=== PATIENT | female | born 1950 | race Caucasian/White ===

== ENCOUNTER 2020-06-01 15:04 | Outpatient (REF) | payer OTHER, SELFPAY | END 2020-06-01 15:05 | disposition home or self-care (01) | LOC: HO.HOSX 15:04 | PROVIDERS: Visit Provider Orthopaedic Surgery | DX: Z13.89 Encounter for screening for other disorder (principal) ==

== ENCOUNTER 2021-11-30 12:24 | Outpatient (REF) | payer MEDICARE, SELFPAY ==
[2021-11-30 14:06] LABS: Hemoglobin 14.5 g/dl (12.0-16.0); Mean Corpuscular HGB Conc 32.2 g/dl (31.0-35.0); Mean Corpuscular Hemoglobin 27.9 pg (27.0-33.0); Mean Corpuscular Volume 86.7 fL (80.0-98.0); Mean Platelet Volume 10.8 fL (9.4-12.3); Platelet Count 326 X10*3/uL (160-400); Red Blood Count 5.19 X10*6/uL (4.20-5.50); Red Cell Distribution Width 13.8 % (11.0-16.0); White Blood Count 6.2 X10*3/uL (4.8-10.8)
[2021-11-30 14:37] LABS: Alanine Aminotransferase 15 U/L (0-31); Albumin Level 4.1 g/dL (3.5-5.0); Alkaline Phosphatase 116 U/L (39-117); Anion Gap 16 (12-20); Aspartate Amino Transferase 21 U/L (5-31); Bilirubin Total 0.3 mg/dL (0.0-1.0); Blood Urea Nitrogen 11 mg/dL (9-16); Calcium 10.2 mg/dL (8.4-10.2); Carbon Dioxide 22 mmol/L (22-29); Chloride 109 mmol/L (96-108); Cholesterol 206 mg/dL; Estimated Glomerular Filt Rate 50; Glucose Fasting 128 mg/dL (60-99); HDL Cholesterol 57 mg/dL; LDL Cholesterol Calculated 118 mg/dl; Potassium 3.6 mmol/L (3.3-5.1); Sodium 143 mmol/L (135-145); Total Protein 6.6 g/dL (6.5-8.0); Triglycerides 158 mg/dL
[2021-11-30 14:52] LABS: TSH reflex Free T4 3.36 uIU/mL (0.32-4.0)
== END 2021-11-30 12:25 | disposition home or self-care (01) ==
LOC: HO.WFDLDS 12:24
PROVIDERS: Visit Provider Hospitalist
DX: Z00.00 Encounter for general adult medical examination without abnormal findings (principal)
CPT/HCPCS: 36415; 80053; 80061; 84443; 85027

== ENCOUNTER → 2021-12-21 15:04 | Outpatient (BNVA) | payer MEDICARE, SELFPAY | PROVIDERS: PCP Hospitalist; Visit Provider Psychiatry & Neurology Psychiatry | DX: F34.1 Dysthymic disorder (principal); F41.1 Generalized anxiety disorder | CPT/HCPCS: 90833; 99212 ==

== ENCOUNTER → 2022-02-03 12:43 | Outpatient (BNVA) | payer MEDICARE, SELFPAY | PROVIDERS: PCP Hospitalist; Visit Provider Psychiatry & Neurology Psychiatry | DX: F34.1 Dysthymic disorder (principal); F41.1 Generalized anxiety disorder | CPT/HCPCS: 90833; 99212 ==

== ENCOUNTER → 2022-03-10 12:37 | Outpatient (BNVA) | payer MEDICARE, SELFPAY | PROVIDERS: PCP Nurse Practitioner Family; Visit Provider Psychiatry & Neurology Psychiatry | DX: F41.1 Generalized anxiety disorder (principal); F34.1 Dysthymic disorder | CPT/HCPCS: 90833; 99212 ==

== ENCOUNTER → 2022-07-19 14:28 | Outpatient (BNVA) | payer MEDICARE, SELFPAY | PROVIDERS: PCP Nurse Practitioner Family; Visit Provider Psychiatry & Neurology Psychiatry | DX: F41.1 Generalized anxiety disorder (principal); F34.1 Dysthymic disorder | CPT/HCPCS: 90833; 99212 ==

== ENCOUNTER 2022-09-12 15:13 | Outpatient (AMB) | payer MEDICARE, SELFPAY ==
--- NOTE | 2022-09-12 15:21 | MHC.OFFVISPS ---
Intake Intake Visit Reasons: Depression follow-up Allergies Penicillins [PENICILLINS] Allergy (Intermediate, Verified 08/02/22 15:31) HIVES Sulfa (Sulfonamide Antibiotics) [SULFA (SULFONAMIDE ANTIBIOTICS)] Allergy (Intermediate, Verified 08/02/22 15:31) HIVES Medication List - Last Reconciled 09/12/22 by Curtis Whitley MD atorvastatin 20 mg PO DAILY 90 days clonazepam 1/2 tab in am 1 tab bedtime may take additional 1/2 tab daily as needed for anxiety gabapentin 300 mg PO TID latanoprost 0.005% 1 drp ophthalmic (eye) DAILY venlafaxine ER 75 mg PO DAILY HPI- Psychiatric Chief Complaint: Depression follow-up HPI Narrative: The patient is a 71-year-old female history of chronic anxiety chronic dysphoria. Patient has had difficulty with the aging process. She also has had chronic difficulty with ear and nasal congestion and has had a the renal mass that was attempted to be biopsied times to couple of years ago but was never worked up some of this has been reviewed with her her right care nurse practitioner. 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 we have tried multiple antidepressants augmentation agent including gabapentin 1st the patient felt was helpful then and had fell was not helpful she has been able to go down 1-1/2 mg of clonazepam daily from a total of 4 mg previously for many years multiple stroke strategies have been tried over the years Past Psychiatric History: long hx chronic depression anxiety sleep disturbance effexor 75 mg klonapin 1 bid takes melatonin Mental Status Exam Mental Status Exam Narrative: Mental Status Exam Narrative: Appearance: Casually dressed multiple tattoos Behavior: Cooperative psychomotor: Within normal limits Speech: Clear goal-directed Thought proccess logical obsessional Thought content: Feels not taken care of listened to frustration with medical sx Mood: Depressed anxious irritable Affect: Irritable dysphoric SI:denies HI:denies VH/AH:none Delusions: None Insight/judgment: Intact but low frustration tolerance Memory/cog: Assessment and Plan Assessment & Plan (1) Generalized anxiety disorder: Status: Acute Code(s): F41.1 - Generalized anxiety disorder (2) Dysthymia (or depressive neurosis): Status: Acute Code(s): F34.1 - Dysthymic disorder Assessment and Plan: Patient urged to have medical workup of chest discomfort neck pain would benefit from medical workup is also scheduled to see ENT (3) Neck pain on left side: Status: Acute Code(s): M54.2 - Cervicalgia Plan inc gabapentin 300 tid as tolerated caution may cause sedation with clonazepam try and decrease clonazepam to 0.5 b.i.d. Medications: Changed From gabapentin use extreme caution when using klonapin and gabapentin use lower klonapin doses 100 - 200 mg (1 - 2 x 100 mg) PO TID PRN 180 caps 2RF anxiety To gabapentin 300 mg PO TID 90 caps 1RF Refilled gabapentin 300 mg PO TID 90 caps 1RF Orders: Orders ECG 12 lead EKG 09/12/22 R00.2 - Palpitations Counseling and coordination of Care Pt. Self Management counseling: Sleep hygiene and Behavior activation Details-Self Mgmt counseling: Issues related med and anxiety the frustration feeling of frustration medical system to encourage self-care has failed augmentation with tricyclic in the past was unable to tolerate consider Abilify or Seroquel have encouraged this before patient encourage ssri low dose olanzapine Medication management counseling: Effectiveness, Side effects and Dosing range Diagnosis and Prognosis Counseling: Accuracy of diagnosis and Prognosis over time Details: I spent [40] minutes reviewing the record, seeing the patient and documenting in the medical record. Counseling provided to the patient/caregiver as outlined below. Addressed patient/caregiver concerns regarding current medication regime including effective adherence. Addressed patient/caregiver concerns regarding diagnosis and prognosis including accuracy of diagnosis, prognosis over time, impact of diagnosis. Addressed patient/caregiver concerns regarding impact of recent stressors. 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
== END 2022-09-12 15:47 | disposition home or self-care (01) ==
LOC: HO.HOP 15:13
PROVIDERS: PCP Nurse Practitioner Family; Visit Provider Psychiatry & Neurology Psychiatry
DX: F41.1 Generalized anxiety disorder (principal); F34.1 Dysthymic disorder; M54.2 Cervicalgia
CPT/HCPCS: 90833; 99213

== ENCOUNTER → 2022-09-12 15:13 | Outpatient (REF) | payer MEDICARE, SELFPAY ==
--- NOTE | 2022-09-12 15:55 | ECG_ITS ---
Test Reason : palpitations Blood Pressure : / mmHG Vent. Rate : 084 BPM Atrial Rate : 084 BPM P-R Int : 164 ms QRS Dur : 068 ms QT Int : 354 ms P-R-T Axes : 055 047 060 degrees QTc Int : 418 ms Normal sinus rhythm with sinus arrhythmia Normal ECG When compared with ECG of 12-AUG-2011 15:37, No significant change was found Referred By: Curtis Whitley Electronically Signed By:MARSHALL AARON MD
== END ==
LOC: HO.CARD 15:13
PROVIDERS: PCP Nurse Practitioner Family; Visit Provider Psychiatry & Neurology Psychiatry
DX: R00.2 Palpitations (principal)
CPT/HCPCS: 90833; 93005; 99212

== ENCOUNTER → 2022-09-12 15:55 | Outpatient (BNV) | payer MEDICARE, SELFPAY | PROVIDERS: PCP Nurse Practitioner Family; Visit Provider Internal Medicine Cardiovascular Disease | DX: R00.2 Palpitations (principal) | CPT/HCPCS: 93010 ==

== ENCOUNTER 2023-02-08 16:09 | Outpatient (AMB) | payer MEDICARE, SELFPAY ==
--- NOTE | 2023-02-08 16:38 | MHC.OFFVISPS ---
Intake Intake Visit Reasons: Depression follow-up Allergies Penicillins [PENICILLINS] Allergy (Intermediate, Verified 08/02/22 15:31) HIVES Sulfa (Sulfonamide Antibiotics) [SULFA (SULFONAMIDE ANTIBIOTICS)] Allergy (Intermediate, Verified 08/02/22 15:31) HIVES HPI- Psychiatric Chief Complaint: Depression follow-up HPI Narrative: the patient is a 72-year-old female long history chronic dysthymia anxiety often spending much for time in the dark. 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 Has been having difficulty with the aging process. Has been tried on multiple medications over time either limited impact or complaints of side effects she does feel gabapentin somewhat helpful in managing anxiety symptoms and Effexor 75 mg. She is aware gabapentin cannot be suddenly discontinued because of WISC risk of physical withdrawal generally takes 300 mg twice a day which she does feel is helpful has been able to get down clonazepam to 0.5 mg twice a day. She is aware there is some association of long-term benzodiazepine use and question risk of dementia did fail TMS in the past Past Psychiatric History: long hx chronic depression anxiety sleep disturbance effexor 75 mg klonapin 1 bid takes melatonin Mental Status Exam Mental Status Exam Narrative: Mental Status Exam Narrative: Appearance: Casually dressed multiple tattoos Behavior: Cooperative psychomotor: Within normal limits Speech: Clear goal-directed Thought proccess logical obsessional Thought content: Feels not taken care of listened to regarding medical profession and regarding her feels somewhat alone Mood: Depressed anxious Affect: dysphoric appropriate to mood constricted SI:denies HI:denies VH/AH:none Delusions: None Insight/judgment: Intact but low frustration tolerance she is aware she needs to manage things in a different way and be more engaged Memory/cog: Assessment and Plan Assessment & Plan (1) Generalized anxiety disorder: Status: Acute Code(s): F41.1 - Generalized anxiety disorder (2) Dysthymia (or depressive neurosis): Status: Acute Code(s): F34.1 - Dysthymic disorder Plan did give patient some information regarding spravato we discussed behavioral management continue Effexor gabapentin patient to can not consider spravato but has generally not been interested Counseling and coordination of Care Pt. Self Management counseling: Exercise and Behavior activation Medication management counseling: Effectiveness and Side effects Diagnosis and Prognosis Counseling: Accuracy of diagnosis, Prognosis over time and Problematic behaviors secondary to diagnosis Details: I spent [38] minutes reviewing the record, seeing the patient and documenting in the medical record. Counseling provided to the patient/caregiver as outlined below. Addressed patient/caregiver concerns regarding current medication regime including effective adherence. Addressed patient/caregiver concerns regarding diagnosis and prognosis including accuracy of diagnosis, prognosis over time, impact of diagnosis. Addressed patient/caregiver concerns regarding impact of recent stressors. 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
== END 2023-02-08 16:45 | disposition home or self-care (01) ==
LOC: HO.HOP 16:09
PROVIDERS: PCP Nurse Practitioner Family; Visit Provider Psychiatry & Neurology Psychiatry
DX: F41.1 Generalized anxiety disorder (principal); F34.1 Dysthymic disorder
CPT/HCPCS: 90833; 99213

== ENCOUNTER → 2023-02-08 16:09 | Outpatient (BNVA) | payer MEDICARE, SELFPAY | PROVIDERS: PCP Nurse Practitioner Family; Visit Provider Psychiatry & Neurology Psychiatry | DX: F41.1 Generalized anxiety disorder (principal); F34.1 Dysthymic disorder | CPT/HCPCS: 90833; 99212 ==

== ENCOUNTER 2023-05-30 14:02 | Outpatient (AMB) | payer MEDICARE, SELFPAY ==
--- NOTE | 2023-05-30 14:14 | A.OFFPSYCH_ITS ---
Intake Intake Visit Reasons: depression Allergies Penicillins [PENICILLINS] Allergy (Intermediate, Verified 08/02/22 15:31) HIVES Sulfa (Sulfonamide Antibiotics) [SULFA (SULFONAMIDE ANTIBIOTICS)] Allergy (Intermediate, Verified 08/02/22 15:31) HIVES Medication List - Last Reconciled 06/05/23 by Curtis Whitley MD atorvastatin 20 mg PO DAILY 90 days clonazepam 0.5 mg PO BID 3 months gabapentin 100 - 200 mg (1 - 2 x 100 mg) PO TID PRN 30 days latanoprost 0.005% 1 drp ophthalmic (eye) DAILY venlafaxine ER 75 mg PO DAILY HPI- Psychiatric Chief Complaint: depression HPI Narrative: Ptis a 72 yo female hx the chronic anxiety depression altered sleep wake cycle has generally been a night owl usually sleeping 2-11am has been going to [facility] has chronic sinus congestion will be going to [facility] Feels less depressed overall Past Psychiatric History: long hx chronic depression anxiety sleep disturbance effexor 75 mg klonapin 1 bid takes melatonin Mental Status Exam Mental Status Exam Narrative: Mental Status Exam Narrative: Appearance: Casually dressed multiple tattoos Behavior: Cooperative psychomotor: Within normal limits Speech: Clear goal-directed Thought proccess logical obsessional Thought content: Feels overwhelmed at times with aging process feels somewhat alone Mood: Depressed anxious Affect: appropriate to mood constricted SI:denies HI:denies VH/AH:none Delusions: None Insight/judgment: Intact but low frustration tolerance Memory/cog: intact Assessment and Plan Assessment & Plan (1) Generalized anxiety disorder: Status: Acute Code(s): F41.1 - Generalized anxiety disorder (2) Dysthymia (or depressive neurosis): Status: Acute Code(s): F34.1 - Dysthymic disorder Plan Try and taper down on clonazepam. Patient understands long-term risks she does use gabapentin up to 3 times a day for anxiety. She has had a difficult time finding strategies to structure and manage her life. She and her are getting along better. I did discuss with the patient and connected with her about the use of the [employer] headband to train relaxation strategies urged regular sleep pattern Medications: Changed From clonazepam 1/2 tab in am 1 tab bedtime may take additional 1/2 tab daily as needed for anxiety 60 tabs 2RF To clonazepam 0.5 mg PO BID 3 months 180 tabs 1RF From gabapentin 100 - 200 mg (1 - 2 x 100 mg) PO TID 30 days 180 caps 2RF To gabapentin 100 - 200 mg (1 - 2 x 100 mg) PO TID 30 days PRN 180 caps 2RF anxiety Counseling and coordination of Care Pt. Self Management counseling: Breathing, Behavior activation and Cognitive restructuring Medication management counseling: Effectiveness and Side effects Details: I spent [] minutes reviewing the record, seeing the patient and documenting in the medical record. Counseling provided to the patient/caregiver as outlined below. Addressed patient/caregiver concerns regarding current medication regime including effective adherence. Addressed patient/caregiver concerns regarding diagnosis and prognosis including accuracy of diagnosis, prognosis over time, impact of diagnosis. Addressed patient/caregiver concerns regarding impact of recent stressors. 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
== END 2023-05-30 14:52 | disposition home or self-care (01) ==
LOC: HO.HOP 14:02
PROVIDERS: Visit Provider Psychiatry & Neurology Psychiatry
DX: F41.1 Generalized anxiety disorder (principal); F34.1 Dysthymic disorder
CPT/HCPCS: 90833; 99213

== ENCOUNTER → 2023-05-30 14:02 | Outpatient (BNVA) | payer MEDICARE, SELFPAY | PROVIDERS: Visit Provider Psychiatry & Neurology Psychiatry | DX: F41.1 Generalized anxiety disorder (principal); F34.1 Dysthymic disorder | CPT/HCPCS: 99212 ==

== ENCOUNTER 2023-10-09 12:57 | Outpatient (AMB) | payer MEDICARE, SELFPAY ==
--- NOTE | 2023-10-09 13:07 | A.OFFPSYCH_ITS ---
Intake Intake Visit Reasons: depression Allergies Penicillins [PENICILLINS] Allergy (Intermediate, Verified 08/02/22 15:31) HIVES Sulfa (Sulfonamide Antibiotics) [SULFA (SULFONAMIDE ANTIBIOTICS)] Allergy (Intermediate, Verified 08/02/22 15:31) HIVES Medication List - Last Reconciled 10/09/23 by Curtis Whitley MD atorvastatin 20 mg PO DAILY 90 days clonazepam 0.5 mg PO BID 3 months gabapentin 100 - 200 mg (1 - 2 x 100 mg) PO TID PRN 30 days latanoprost 0.005% 1 drp ophthalmic (eye) DAILY venlafaxine ER 75 mg PO DAILY HPI- Psychiatric Chief Complaint: depression HPI Narrative: Patient seen psychiatric follow-up. Patient's mood has been increasingly anxious and depressed concerned regarding multiple medical issues that have not been addressed. Chronic crunching noise when she eats occasional tinnitus other concerns regarding some mild abnormalities on lab tests. The patient has felt ignored in her marriage. Has been on clonazepam 0.5 b.i.d. venlafaxine 75 mg daily feels like she had felt better on higher dose of venlafaxine. Has not been using gabapentin Past Psychiatric History: long hx chronic depression anxiety sleep disturbance effexor 75 mg klonapin 1 bid takes melatonin Mental Status Exam Mental Status Exam Narrative: mood described as anxious irritable worried depressed thoughts logic poor motivation concentration variable sleep increase lethargy speech clear goal- directed no SI no psychosis patient aware she has low motivation does not do any things that she used to do 0 HR Results Reviewed Results Reviewed: Blood sugar mildly elevated TSH 5.1 as patient discuss with her primary care check B vitamins Assessment and Plan Assessment & Plan (1) Generalized anxiety disorder: Status: Acute Code(s): F41.1 - Generalized anxiety disorder (2) Dysthymia (or depressive neurosis): Status: Acute Code(s): F34.1 - Dysthymic disorder Plan inc effexor 150 mg daily gabapentin 100 bid prn 2-300 hs monitor mood klonapin 0.5 bid Counseling and coordination of Care Details-Self Mgmt counseling: Issues related to anxiety and despair discussed different management strategies Details: I spent [] minutes reviewing the record, seeing the patient and documenting in the medical record. Counseling provided to the patient/caregiver as outlined below. Addressed patient/caregiver concerns regarding current medication regime including effective adherence. Addressed patient/caregiver concerns regarding diagnosis and prognosis including accuracy of diagnosis, prognosis over time, impact of diagnosis. Addressed patient/caregiver concerns regarding impact of recent stressors. PFSH Medical History Anxiety Depression Dysthymia (or depressive neurosis) Generalized anxiety disorder Glaucoma High blood cholesterol level Family History Father Diabetic acidosis, type II Mother Breast cancer Social History Housing: House Patient Tobacco Use Status: Never used Tobacco e-Cigarette/Vaping Use: Never Used service: No Current occupational status: retired Cognitive needs: No Hearing needs: No Vision needs: No Social History: pt x 3 retired no children only child used work [employer] membership dir chronic sleep difficulty In past use to work out regularly Substance History: n/a Trauma History: none Coding Level of Care Code Est Pt Level 3 (70447) Therapy 30m w/E&M (99911) Diagnoses Generalized anxiety disorder F41.1 Dysthymia (or depressive neurosis) F34.1
--- OUTSIDE RECORDS SUMMARY | 2023-10-11 07:41 | XMS_ITS | Continuity of Care Document ---
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 Name Role Phone Haleigh BARON, Jluis Metzger Primary Care Physician [place] [facility] [place]/15[place]22 - 09/14/[address] [id number] Attending Physician: Mando Lugo NP Admitting Physician: Parish STEELE, Mando Referring Physician: Mando Lugo NP Allergies, Adverse Reactions, Alerts Substance Reaction Severity Status doxycycline Active azithromycin diarrhea Active sulfamethoxazole Active penicillins Persistent Moderate Active Immunizations Given and Recorded Vaccine Date Status Refusal Reason SARS-CoV-2 (COVID-19) mRNA BNT-162b2 vac 11/04/20 Recorded SARS-CoV-2 (COVID-19) mRNA BNT-162b2 vac 10/14/20 Recorded influenza virus vaccine, inactivated 11/19/19 Aman rded influenza virus vaccine, inactivated 12/04/15 Aman rded Medications clonazePAM 2 mg oral tablet 1/2 tablet, By Mouth, 2 times a day, 0 Refills, Maintenance, 12/03/20 15:48:00 EDT, Partial fill upon patient request if the prescription is for a schedule II opioid drug. Start Date: 12/03/20 Status: Ordered Diflucan 150 mg oral tablet 1 tablet = 150 mg, By Mouth, Once, repeat in 3 days if still having symptoms, # 2 tablet, 0 Refills, Soft Stop, 03/12/21 13:25:00 EST, Tablet, [id number], Partial fill upon patient request ifthe prescription is for a schedule II opioid drug.,... Start Date: 03/12/21 Status: Ordered ipratropium nasal 21 mcg/inh spray See Instructions, INSTILL 2 SPRAYS INTRANASALLY 2 TIMES A DAY, # 30 Unknown, 0 Refills, [id number], 30, INSTILL 2 SPRAYS INTRANASALLY 2 TIMES A DAY, 170, cm, 12/03/20 15:43:00 EDT, Height, 55, kg, 07/22/19 9:41:00 EDT, Dry Weight Start Date: 04/05/21 Status: Ordered latanoprost 0.005% ophthalmic solution 1 drops, Eyes, Both, Daily at bedtime, # 3 mL, 0 Refills, Maintenance, 12/03/20 15:50:00 EDT, [facility], Partial fill upon patient request if the prescription is for a schedule II opioid drug. Start Date: 12/03/20 Status: Ordered melatonin 5 mg oral tablet 1 tablet = 5 mg, By Mouth, Daily at bedtime, PRN for insomnia, # 60 tablet, 0 Refills, Maintenance,12/03/20 15:55:00 EDT, Tablet, Partial fill upon patient request if the prescription is for a schedule II opioid drug. Start Date: 12/03/20 Status: Ordered venlafaxine 75 mg oral capsule, extended release 75 mg, 1, capsule, By Mouth, Daily, Refills 0, Maintenance, 03/12/21 13:23:00 EST, Partial fill upon patient request if the prescription is for a schedule II opioid drug. Start Date: 03/12/21 Status: Ordered Zithromax Z-Po 250 mg oral tablet 1 pack/packet, By Mouth, Once, # 6 tablet, 0 Refills, Soft Stop, 03/12/21 13:24:00 EST, Tablet, [id number], Partial fill upon patient request if the prescription is for a schedule II opioid drug., 170, cm, 12/03/20 15:43:00 EDT, Height, 55, kg... Start Date: 03/12/21 Status: Ordered ZyrTEC 10 mg oral tablet 1 tablet, By Mouth, Daily, # 30 tablet, 0 Refills, [id number], 170, cm, 12/03/20 15:43:00 EDT,Height, 55, kg, 07/22/19 9:41:00 EDT, Dry Weight Start Date: 04/05/21 Status: Ordered Problem List Condition Confirmation Course Effective Dates Status Health St [facility] Informant Anxiety Confirmed Active Glaucoma Confirmed Active HLD (hyperlipidemia) Confirmed Active IFG (impaired fasting glucose) Confirmed Active Elevated LFTs Confirmed Active Health care maintenance Confirmed Active Psoriasis Confirmed Active Renal mass Confirmed Active Social History Social History Type Response Smoking Status Former smoker, quit more than 30 days ago entered on: 12/02/20 Sex Patient Care team information Care Team Personnel Name: Haleigh BARON, Jluis Metzger Position: S Physician - Primary Care Member Role: PCP Address: Address: [address] [place] [id number]- Care Team Related Persons Name: TENISHA KUMARI Address: home [address] [place] [address]
== END 2023-10-09 13:32 | disposition home or self-care (01) ==
LOC: HO.HOP 12:57
PROVIDERS: Visit Provider Psychiatry & Neurology Psychiatry
DX: F41.1 Generalized anxiety disorder (principal); F34.1 Dysthymic disorder
CPT/HCPCS: 90833; 99213

== ENCOUNTER → 2023-10-09 12:57 | Outpatient (BNVA) | payer MEDICARE, SELFPAY | PROVIDERS: Visit Provider Psychiatry & Neurology Psychiatry | DX: F41.1 Generalized anxiety disorder (principal); F34.1 Dysthymic disorder | CPT/HCPCS: 99212 ==

== ENCOUNTER 2023-11-28 14:32 | Outpatient (AMB) | payer MEDICARE, SELFPAY ==
--- NOTE | 2023-11-28 14:51 | A.OFFPSYCH_ITS ---
Intake Intake Visit Reasons: Depression Allergies Penicillins [PENICILLINS] Allergy (Intermediate, Verified 08/02/22 15:31) HIVES Sulfa (Sulfonamide Antibiotics) [SULFA (SULFONAMIDE ANTIBIOTICS)] Allergy (Intermediate, Verified 08/02/22 15:31) HIVES Medication List - Last Reconciled 11/28/23 by Curtis Whitley MD atorvastatin 20 mg PO DAILY 90 days clonazepam 0.5 mg PO BID 3 months gabapentin 100 - 200 mg (1 - 2 x 100 mg) PO TID PRN 30 days latanoprost 0.005% 1 drp ophthalmic (eye) DAILY venlafaxine ER 150 mg PO DAILY 90 days HPI- Psychiatric Chief Complaint: Depression HPI Narrative: Pt seen in f/u mood has been improved some discouragement at times regarding aging process. Doing better c/o general aches and pains.New pcp dorothea sahni nps on vit d prediabetes . Patient's PHQ-9 and anxiety Scale shows significant improvement. Effexor at 150 mg seems to be at least somewhat effective in moderating patient's mood and anxiety symptoms. 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 Past Psychiatric History: long hx chronic depression anxiety sleep disturbance effexor 75 mg klonapin 1 bid takes melatonin Mental Status Exam Mental Status Exam Narrative: Mental Status Exam Narrative: Appearance: Casually dressed Behavior: Cooperative appropriate psychomotor: Within normal limits Speech: Normal volume and prosody Thought proccess logical and goal-directed Thought content: Future oriented no self-harming thoughts some rumination regarding medical concerns and the aging process Mood: Mild anxiety Affect: Appropriate to mood full affect SI:denies HI:denies VH/AH:none Delusions: None Insight/judgment: Good insight and judgment Memory/cog: Intact Assessment and Plan Assessment & Plan (1) Generalized anxiety disorder: Status: Acute Code(s): F41.1 - Generalized anxiety disorder (2) Dysthymia (or depressive neurosis): Status: Acute Code(s): F34.1 - Dysthymic disorder Plan Clonazepam as his 0.5 mg twice a day no evidence of overuse or difficult side effects noted she does seem to do better and function better low-dose clonazepam no falls and gabapentin with a max of 200 mg twice day seems to be intermittently helpful in managing control of anxiety. Medications: Changed From gabapentin 100 - 200 mg (1 - 2 x 100 mg) PO TID 30 days PRN 180 caps 2RF anxiety To gabapentin 100 - 200 mg (1 - 2 x 100 mg) PO BID 90 days PRN 360 caps 1RF anxiety Counseling and coordination of Care Pt. Self Management counseling: Behavior activation Medication management counseling: Effectiveness, Side effects and Dosing range Diagnosis and Prognosis Counseling: Prognosis over time, Impact of family relationship, Problematic behaviors secondary to diagnosis and Adequacy of current interventions Details-Diagnosis/Prognosis counseling: Encourage daily walk-in light exposure continue Effexor she has been tried on multiple other antidepressant trials and augmentation strategies Details: I spent [45] minutes reviewing the record, seeing the patient and documenting in the medical record. Counseling provided to the patient/caregiver as outlined below. Addressed patient/caregiver concerns regarding current medication regime including effective adherence. Addressed patient/caregiver concerns regarding diagnosis and prognosis including accuracy of diagnosis, prognosis over time, impact of diagnosis. Addressed patient/caregiver concerns regarding impact of recent stressors. [facility] Medical History Anxiety Depression Dysthymia (or depressive neurosis) Generalized anxiety disorder Glaucoma High blood cholesterol level Family History Father Diabetic acidosis, type II Mother Breast cancer Social History (Reviewed 08/02/22 @ 15:20 by Melissa Zapata [facility]) Housing: House Patient Tobacco Use Status: Never used Tobacco e-Cigarette/Vaping Use: Never Used service: No Current occupational status: retired Cognitive needs: No Hearing needs: No Vision needs: No Social History: pt x 3 retired no children only child 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
== END 2023-11-28 15:27 | disposition home or self-care (01) ==
LOC: HO.HOP 14:32
PROVIDERS: PCP Nurse Practitioner Family; Visit Provider Psychiatry & Neurology Psychiatry
DX: F41.1 Generalized anxiety disorder (principal); F34.1 Dysthymic disorder
CPT/HCPCS: 90833; 99213

== ENCOUNTER → 2023-11-28 14:32 | Outpatient (BNVA) | payer MEDICARE, SELFPAY | PROVIDERS: PCP Nurse Practitioner Family; Visit Provider Psychiatry & Neurology Psychiatry | DX: F41.1 Generalized anxiety disorder (principal); F34.1 Dysthymic disorder | CPT/HCPCS: 99212 ==

== ENCOUNTER 2024-03-26 14:33 | Outpatient (AMB) | payer MEDICARE, SELFPAY ==
--- OUTSIDE RECORDS SUMMARY | 2024-03-26 14:35 | XMS_ITS | Clinical Summary ---
Author Organization [facility] Address [address] [place] [address] Phone Care Team Providers Care Filer Repairer Name Role Phone Terrence Jones MD Primary Care Provider [phone] Social History Tobacco Use Types Packs/Day Years Used Date Smoking Tobacco: Never Assessed Comments Unknown Sex and Gender Information Value Date Recorded Sex Assigned at Not on file Legal Sex Female 11:37 AM EDT Gender Identity Not on file Sexual Orientation Not on file Plan of Treatment Upcoming Encounters Date Type Department Care Team (Late st Contact Info) Description 04/03/2024 2:30 PM EST Office Visit [facility] [place], [address] [place] [address] John Quintanilla MD [address] [place] [address] Health Maintenance Due Date Last Done Comments Breast Cancer Screening 1948 Colorectal Cancer Screening: Annual FOBT 1997 Colorectal Cancer Screening: Colonoscopy 1997 Colorectal Cancer Screening: Sigmoidoscopy 1997 Pneumococcal Vaccine: 65+ Ye ars (1 of 1 - PCV) 2013 Influenza Vaccine (#1) 2023 Hepatitis B Vaccine Aged Out No longe r eligible based on patient's age to complete this topic Insurance [facility] Care Teams Filer Repairer Relationship Specialty Start Date End Date Terrence Jones MD [address] [place] [address] PCP - General Internal Medicine 10/18/23
--- OUTSIDE RECORDS SUMMARY | 2024-03-26 14:35 | XMS_ITS | Encounter Summary ---
Author Organization [facility] [place], Address [address] [place] [address] Phone Care Team Providers Care Ruby On Rails Software Developer Name Role Phone Terrence Jones MD Primary Care Provider [phone] Encounter Details Date Type Department Care Team (Late st Contact Info) Description 10/18/2023 Documentation Only [facility] [address] [place] [address] [place], [place] [address] [place] [address] Social History Tobacco Use Types Packs/Day Years Used Date Smoking Tobacco: Never Assessed Comments Unknown Sex and Gender Information Value Date Recorded Sex Assigned at Not on file Legal Sex Female 11:37 AM EDT Gender Identity Not on file Sexual Orientation Not on file documented as of this encounter Plan of Treatment Upcoming Encounters Date Type Department Care Team (Late st Contact Info) Description 04/03/2024 2:30 PM EST Office Visit [facility] [address] [place] [address] John Quintanilla MD [address] [place] [address] [place] [phone] documented as of this encounter Visit Diagnoses Not on filedocumented in this encounter Care Teams Ruby On Rails Software Developer Relationship Specialty Start Date End Date Terrence Jones MD [employer] [address] [place] [address] [address] [place] [address] PCP - General Internal Medicine 10/18/23 documented as of this encounter
--- OUTSIDE RECORDS SUMMARY | 2024-03-26 14:35 | XMS_ITS | Continuity of Care Document ---
Author Organization [place] - [facility], [facility] Address [address] [place] [address] Care Team Providers Care Lactation Specialist Name Role Phone SANDRA PLEITEZ Primary Care Provider [phone] Assessment Encounter Date Assessment Date Assessment LastModified by Organization Details LastModified Time 03/22/2024 03/22/2024 Patient presents with non-pulsatile tinnitus. Audiometric testing demonstrates bilateral neurosensory hearing loss without significant asymmetry. Speech recognition is good and amplification is not currently indicated. Recommend repeat audiometric testing in 1-2 years or with perceived change. We reviewed that unfortunately there is no known medical nor surgical cure for tinnitus. I have recommended the use of hearing protection as needed. They should also use masking techniques with background noises that modulate to decrease perception of non-pulsatile tinnitus. Other therapies to improve tolerance of tinnitus were reviewed, to include biofeedback, sound retraining, and cognitive behavioral therapy. We discussed that high stress, low sleep and high caffeine intake can also be contributing factors. A brochure was provided to patient to read at home. We reviewed that her psoriasis is affecting the skin of the ears; recommend Lotrisone. Instructions for use reviewed and patient understands. Patient with throat discomfort. Tonsils erythematous today but do not appear infected. Recommend she return next available for full throat work up. [email or web address] Not available 03/22/2024 16:27:35 Plan of Treatment Reminders Order Date Submit Date Provider Last Modified By Organization Details Last Modified Time Details Appointments Establish ed 15 2024 03:30P M LENNOX JOSUE PA-C Not available Not available Not available Lab None recorded. Referral None recorded. Procedures None recorded. Surgeries None recorded. Imaging None recorded. Medication Orders clotrimaz ole-betam ethasone 1 %-0.05 % topical cream 2024 025 [facility]/Ph[facility] #[id number], [address] [facility], [place], [address], 03/22/2024 14:03:38 Patient TargetsNo targets recorded. Patient InstructionsNo instructions recorded. Reason for Referral None Reported. Results Created Date Observation Date Name Description Value Unit Range Abnormal Flag Note LastModifiedBy Organization Detail LastModifiedTime 03/22/19 25 audio gram No observ ation record ed. BARCODE Not Available 2024 15:54:14 Result Notes None recorded. Problems Name Problem SNOMED Code Status Onset Date Resolution Date Notes Provider Name and Address Organization Details Recorded Time Sensorineur al hearing loss of bilateral ears 551973373 Active 2024 SUSAN OBRIEN MA, CCC-A [address] [facility] [facility] [address], [place], [address], [facility] - [facility] 13:44:12 Psoriasis 1925580 Active 2024 SUSANA RICHARDSON [place] [address], [place], [address], [facility] - [facility] 14:02:51 Bilateral tinnitus 4181485873815 Active 2024 SUSANA RICHARDSON [facility] [facility] [address], [place], [address], [facility] - [facility] 14:06:11 Problem Notes None recorded. Procedures Surgical History Date Name Laterality Status Provider Name and Address Organization Details Recorded Time 03/22/2024 Comp Audio with Tymps (98691 & 67474) completed SUSAN OBRIEN MA, CCC-A [address] [facility],[place] [address], [place], [address], [facility] - [facility] 03/22/2024 13:44:20 Imaging Results None recorded. Procedure Notes None recorded. Medical Equipment None Reported. Allergies Allergen ID Allergen Name Allergen Category Reaction Reaction Severity Criticality Documentation Date Start Date Code Code System Note Provider Name and Address Organization Details Recorded Time 794988 Product containin g penicilli n and antibioti c (product) medicatio n hives Not available low 03/22/2024 65053 05 SNOMED Cristal garcia [place] - [facility] 13:56:54 Medications Name Sig Start Date Stop Date Status Note LastModified by Organization Details LastModified Time latanoprost 0.005 % eye drops INSTILL 1 DROP INTO BOTH EYES TWICE A DAY active Not Available Not Available No t Available venlafaxine ER 75 mg capsule,ext ended release 24 hr TAKE 1 CAPSULE BY MOUTH EVERY DAY active Not Available Not Available No t Available atorvastati n 20 mg tablet TAKE 1 TABLET BY MOUTH EVERY DAY active Not Available Not Available No t Available tizanidine 2 mg tablet TAKE 1 TABLET BY MOUTH EVERY DAY AT BEDTIME FOR 10 DAYS active Not Available Not Available No t Available azithromyci n 250 mg tablet TAKE 2 TABLETS BY MOUTH TODAY, THEN TAKE 1 TABLET DAILY FOR 4 DAYS DIRECTED 03/22 completed Not Available Not Available Not Available clonazepam 0.5 mg tablet TAKE 1 TABLET BY MOUTH TWICE A DAY FOR 3 MONTHS active Not Available Not Available No t Available clonazepam 1 mg tablet TAKE 1/2 TAB IN AM 1 TAB BEDTIME MAY TAKE ADDITIONA L 1/2 TAB DAILY NEEDED FOR ANXIETY active Not Available Not Available No t Available venlafaxine ER 150 mg capsule,ext ended release 24 hr TAKE 1 CAPSULE BY MOUTH EVERY DAY active Not Available Not Available No t Available clotrimazol e-betametha sone 1 %-0.05 % topical cream APPLY TO THE AFFECTED SKIN BY TOPICAL ROUTE 2 TIMES PER DAY IN THE MORNING AND EVENING FOR 2 WEEKS 2024 active Not Available Not Available Not Avai lable halobetasol propionate 0.05 % topical ointment APPLY TO ARMS, LEGS, BACK 2X/DAY FOR UP TO 2 WEEKS (WITH CALCIPOTR IENE) THEN 2X/DAY ONLY ON WEEKENDS active Not Available Not Available No t Available gabapentin 100 mg capsule TAKE 1 TO 2 CAPSULES BY MOUTH TWICE A DAY NEEDED FOR ANXIETY active Not Available Not Available No t Available calcipotrie ne 0.005 % topical ointment APPLY TO ARMS, LEGS, BACK TWICE DAILY FOR 2 WEEKS (WITH HALOBETAS OL) THEN TWICE DAILY MONDAY- active Not Available Not Available No t Available Vitals Date Recorded Body height Body mass index (BMI) Body weight Provider Name and Address Organization Details Last Updated DateTime 03/22/2024 170.18 cm 21.9 kg/m2 28897.93 g Cristal Aquino [place] - [facility] 03/22/2024 13:56:23 Social History Question Answer Notes LastModified by Organizat ion Details LastModified Time Do You Use Any Illicit Or Recreational Drugs? No Information not available 03/22/2024 Do You Or Have You Ever Used Any Other Forms Of Tobacco Or Nicotine? No Information not available 03/22/2024 Sex: Unknown Functional Status None recorded. Mental Status None recorded. Family History Nothing Reported. Medical History Condition Response Allergies/Hayfever N Heart Problems N Anxiety Y Tonsil Infections N Emphysema N Migraines N Thyroid Problems N Glaucoma N Depression Y COPD N Developmental Delay N Nasal or Sinus Problems N Anemia N Immune System Disorder N Anesthesia Complications N Heart Attack ([place]) N Other Skin Condition N Diabetes N Rhinitis N Bleeding Disorder N Food Allergy N Arthritis N Hearing Loss N Hyperlipidemia N Cancer N Stroke N Dementia N Nasal polyps N Asthma N Sleep Disorder N GERD/Reflux N High Cholesterol N Liver Disease N Headaches N Fibromyalgia N Hypertension N Speech Delay N Kidney Disease N Gynecological HistoryNo gynecological history recorded. Obstetrics History GPAL:G 0 P 0 0 0 0 Past Encounters Encounter ID Performer Location Encounter Start Date Encounter Closed Date Diagnosis/Indication Diagnosis SNOMED-CT Code Diagnosis ICD10 Code Diagnosis Note [id number] SUSANA RICHARDSON PA-C [facility] of [address] [address] 03/22/2024 12:52:20 03/22/2024 14:12:25 Sensorineural hearing loss of bilateral ears 264488156 H90.3 Audiologic al evaluation results: Right ear: {{Normal N ormal through 2 kHz Mild M oderate Mo derately-s evere Geni re Profoun d Normal/ borderline normal hearing#}} {{hearing hearing. s loping to a mild slopi ng to a moderate s loping to moderately severe slo ping to severe slo ping to profound f lat high frequency low frequency mid frequency cookie bite harris curve slop ing to a mild SNHL#}} {{with* se nsorineura l hearing loss with condu ctive hearing loss with mixed hearing loss with}} {{excellen t* good fa ir poor no measurable }} word recognitio n. Left ear: {{Normal N ormal through 2 kHz Mild M oderate Mo derately-s evere Geni re Profoun d Normal hearing sloping to#}} {{hearing hearing. s loping to a mild slopi ng to a moderate s loping to moderately severe slo ping to severe slo ping to profound f lat high frequency low frequency mid frequency cookie bite harris curve a mild SNHL#}} {{with* se nsorineura l hearing loss with condu ctive hearing loss with mixed hearing loss with}} {{excellen t* good fa ir poor no measurable }} word recognitio n. Tympanomet ry: Right Ear:{{Type A* Type As Type Ad Type C Type C, shallow & rounded Ty pe B Type B with large volume Cou ld not maintain a hermetic seal}} Left Ear:{{Type A* Type As Type Ad Type C Type C, shallow & rounded Ty pe B Type B with large volume Cou ld not maintain a hermetic seal}} Psoriasis 3542224 L40.9 Bilateral tinnitus 45530 67469 102 H93.13 Health Concerns Section Related Observation LastModified by Organization Detai ls LastModified Time None Recorded Concern Status LastModified by Organization Details LastModified Time None Recorded Payers Encounter Date Sequence Insurance Name Policy Number Policy Leyva Covered Member ID Leyva Member ID Guarantor Name 03/22/[address] [facility] (MEDICARE REPLACEMENT/ ADVANTAGE - PPO) [id number] 2 Irma Acevedo [id number] Irma Haile Notes Date Note Type Note Provider Name and Address Organization Details Recorded Time 03/22/2024 text/html 73 year old female presents for evaluation of ears and hearing. Has had tinnitus in both ears for a long time, non-pulsatile, recently worse. There is a crackling in the ears at times. Sometimes there is a pulsing in the ears that is definitely not in time with her heart beat. There is no otalgia nor otorrhea. Overall she feels the hearing is good. No history of recurrent otitis nor otologic surgery. She has a lot of noise exposure, [place]. Denies spinning vertigo. SUSANA KETCHEN, PA-C [address] [facility],[place] [address], [place], [address], [place] - [facility] 03/22/2024 16:27:50 OBGyn Episode No OBEpisode recorded.
--- OUTSIDE RECORDS SUMMARY | 2024-03-26 14:35 | XMS_ITS | Data Portability ---
Author Organization [place] - [facility], Allergy Address [address] [address] Care Team Providers Care Coding Validator Name Role Phone SANDRA PLEITEZ Primary Care Provider [phone] Assessment Encounter Date Assessment Date Assessment LastModified [...] Details Appointments Establish ed 15 2024 03:30P Jay JOSUE PA-C Not available Not available Not available Lab None recorded. Referral None recorded. Procedures None recorded. Surgeries None recorded. Imaging None recorded. Medication Orders clotrimaz ole-betam ethasone 1 %-0.05 % topical cream 2024 025 [facility]/Pharmacy #[id number], [address] [facility], [place], [address], 03/22/2024 14:03:38 Patient TargetsNo targets recorded. Patient [...] Sensorineur al hearing loss of bilateral ears 500657136 Active 2024 SUSAN OBRIEN MA, CCC-A [address] [facility], [address] [facility], [place], [address], [facility] - [facility] 13:44:12 Psoriasis 1758771 Active 2024 SUSANA RICHARDSON [place],[place] [address], [place], [address], [facility] - [facility] [place] 14:02:51 Bilateral tinnitus 0507994575832 Active 2024 SUSANA RICHARDSON PA[address],[place] [address], [place], [address], [facility] - [facility] [place] 14:06:11 Problem Notes None recorded. Procedures Surgical History Date Name Laterality Status Provider Name and Address Organization Details Recorded Time 03/22/2024 Comp Audio with Tymps (97928 & 57250) completed SUSAN OBRIEN MA, CCC-A [address] [facility],[place] [address], [place], [address], [facility] - [facility] 03/22/2024 13:44:20 Imaging Results Imaging Date Name Status LastModified by Organiz ation Details LastModified Time 03/22/2024 audiogram completed BARCODE Information no t available 03/22/2024 15:54:14 Procedure Notes None recorded. Medical Equipment None Reported. Allergies Allergen ID Allergen Name Allergen Category Reaction Reaction Severity Criticality Documentation Date Start Date Code Code System Note Provider Name and Address Organization Details Recorded Time 580711 Product containin g penicilli n and antibioti c (product) medicatio n hives Not available low 03/22/2024 98876 05 SNOMED Cristal Aquino JOSH garcia - [facility] 13:56:54 Medications Name Sig Start Date Stop [...] (WITH HALOBETAS OL) THEN TWICE DAILY MONDAY- IDA active Not Available Not Available No t Available Vitals Date Recorded Body height Body mass index (BMI) Body weight Provider Name and Address Organization Details Last Updated DateTime 03/22/2024 170.18 cm 21.9 kg/m2 47284.93 g Cristal Aquino [place] - [facility] 03/22/2024 13:56:23 Social History Question Answer Notes [...] Disorder N Anesthesia Complications N Heart Attack ([place]) N Other Skin Condition N Diabetes N [...] SNOMED-CT Code Diagnosis ICD10 Code Diagnosis Note [id number] SUSANA RICHARDSON PA-C [facility] of [address] [address] 03/22/2024 12:52:20 03/22/2024 14:12:25 Sensorineural hearing loss of bilateral ears 446098929 H90.3 Audiologic al evaluation results: Right ear: [...] ld not maintain a hermetic seal}} Psoriasis 2349301 L40.9 Bilateral tinnitus 01238 33896 102 H93.13 Health Concerns Section Related Observation LastModified by Organization Detai ls LastModified Time None Recorded Concern Status LastModified by Organization Details LastModified Time None Recorded Advance Directives Directive None Recorded Payers Encounter Date Sequence Insurance Name Policy Number Policy Leyva Covered Member ID Leyva Member ID Guarantor Name 03/22/2024 1 [facility] (MEDICARE REPLACEMENT/ ADVANTAGE - PPO) [id number] 2 Irma Acevedo [id number] Irma Haile Notes Date Note Type Note [...] of her life. Denies spinning vertigo. SUSANA RICHARDSON PA-C [address] [place] [address], [place], [address], [facility] - [facility] 03/22/2024 16:27:50 OBGyn Episode No OBEpisode recorded.
--- NOTE | 2024-03-26 15:45 | MHC.OFFVISPS ---
Intake Intake Visit Reasons: Depression Allergies Penicillins [PENICILLINS] Allergy (Intermediate, Verified 08/02/22 15:31) HIVES Sulfa (Sulfonamide Antibiotics) [SULFA (SULFONAMIDE ANTIBIOTICS)] Allergy (Intermediate, Verified 08/02/22 15:31) HIVES Medication List - Last Reconciled 03/26/24 by Curtis Whitley MD atorvastatin 20 mg PO DAILY 90 days clonazepam 0.5 mg PO BID 3 months gabapentin 100 - 200 mg (1 - 2 x 100 mg) PO BID PRN 90 days latanoprost 0.005% 1 drp ophthalmic (eye) DAILY venlafaxine ER 150 mg PO DAILY 90 days HPI- Psychiatric Chief Complaint: Depression HPI Narrative: Patient seen psychiatric follow-up. Patient has been able to go down to 0.5 mg b.i.d. Effexor 75 mg daily has gabapentin that she has generally been taking 1-200 mg up to 3 times a day. 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 Concerns about the aging process how she has been aging lives part-time with her who has his own house. Feels difficulty with motivation energy mood flat dysphoric by history has not responded to multiple antidepressant trials and different augmentation strategies with SSRIs SNRI tricyclic antidepressants. Patient had also failed a trial of TMS Past Psychiatric History: long hx chronic depression anxiety sleep disturbance effexor 75 mg klonapin 1 bid takes melatonin Mental Status Exam Mental Status Exam Narrative: Mental Status Exam Narrative: Appearance: Casually dressed has multiple tattoos Behavior: Cooperative appropriate mildly expansive psychomotor: Within normal limits Speech: Normal volume and prosody Thought proccess logical and goal-directed Thought content: Future oriented but complains of limited enjoyment worries regarding the aging process\ At times feels not treated well by her Mood: anxious and depressed Affect: Appropriate to mood full affect SI:denies HI:denies VH/AH:none Delusions: None Insight/judgment: Good insight and judgment Memory/cog: Intact Assessment and Plan Assessment & Plan (1) Generalized anxiety disorder: Status: Acute Code(s): F41.1 - Generalized anxiety disorder (2) Dysthymia (or depressive neurosis): Status: Acute Code(s): F34.1 - Dysthymic disorder Plan Trial of gabapentin t.i.d. 200 t.i.d. or 300 b.i.d. monitor for adverse effects risks benefits alternatives reviewed discussed side effects including sedation try to avoid use with clonazepam patient not drinking Discussed benefits of daily walking social engagement and other activities and structure that might help her get house decrease her level of obsessional anxiety Counseling and coordination of Care Pt. Self Management counseling: Breathing and Maintenance-social rhythm Details-Self Mgmt counseling: Issues related to managing stress and anxiety Medication management counseling: Effectiveness and Side effects Diagnosis and Prognosis Counseling: Problematic behaviors secondary to diagnosis and Adequacy of current interventions Details: I spent [38] minutes reviewing the record, seeing the patient and documenting in the medical record. Counseling provided to the patient/caregiver as outlined below. Addressed patient/caregiver concerns regarding current medication regime including effective adherence. Addressed patient/caregiver concerns regarding diagnosis and prognosis including accuracy of diagnosis, prognosis over time, impact of diagnosis. Addressed patient/caregiver concerns regarding impact of recent stressors. 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
== END 2024-03-26 15:17 | disposition home or self-care (01) ==
LOC: HO.HOP 14:33
PROVIDERS: PCP Nurse Practitioner Family; Visit Provider Psychiatry & Neurology Psychiatry
DX: F41.1 Generalized anxiety disorder (principal); F34.1 Dysthymic disorder
CPT/HCPCS: 90833; 99213

== ENCOUNTER → 2024-03-26 14:33 | Outpatient (BNVA) | payer MEDICARE, SELFPAY | PROVIDERS: PCP Nurse Practitioner Family; Visit Provider Psychiatry & Neurology Psychiatry | DX: F32.A Depression, unspecified (principal); F41.1 Generalized anxiety disorder; F34.1 Dysthymic disorder | CPT/HCPCS: 99212 ==

== ENCOUNTER 2024-10-01 14:39 | Outpatient (AMB) | payer MEDICARE, SELFPAY ==
--- NOTE | 2024-10-01 15:05 | MHC.OFFVISPS ---
Intake Intake Visit Reasons: depression Allergies Penicillins (PENICILLINS) Allergy (Intermediate, Verified 08/02/22 15:31) HIVES Sulfa (Sulfonamide Antibiotics) (SULFA (SULFONAMIDE ANTIBIOTICS)) Allergy (Intermediate, Verified 08/02/22 15:31) HIVES HPI- Psychiatric Chief Complaint: depression HPI Narrative: Patient seen psychiatric follow-up patient is mood mildly anxious mild dysphoria at times feels gabapentin has been helpful we have been able to taper down on clonazepam. Continues on lower dose venlafaxine we have tried to discontinue on many occasions Patient has some difficulty with the aging process and not being able to do what she used to do. Deal she has not been supported by her primary care has chronic ENT problems no evidence of overuse of gabapentin she has been warned regarding fall risks with both gabapentin and Klonopin and potential cognitive side effects including long-term side effects. Past Psychiatric History: long hx chronic depression anxiety sleep disturbance effexor 75 mg klonapin 1 bid takes melatonin Mental Status Exam Mental Status Exam Narrative: Mental Status Exam Narrative: Appearance: Casually dressed has multiple tattoos Behavior: Cooperative appropriate mildly expansive psychomotor: Within normal limits Speech: Normal volume and prosody Thought proccess logical and goal-directed Thought content: Future oriented but complains of limited enjoyment worries regarding the aging process and worried about her who may be medically ill and general feels has not been very caring or supportive an emotional way Mood: anxious and depressed Affect: Appropriate to mood full affect SI:denies HI:denies VH/AH:none Delusions: None Insight/judgment: Good insight and judgment Memory/cog: Intact Assessment and Plan Assessment & Plan (1) Dysthymia (or depressive neurosis): Status: Acute Code(s): F34.1 - Dysthymic disorder (2) Generalized anxiety disorder: Status: Acute Code(s): F41.1 - Generalized anxiety disorder Plan Continue gabapentin 300 b.i.d. patient generally takes PRN intermittently helpful for anxiety and functioning denies feeling overly sedated confused or gait disturbance. Has low-dose clonazepam 0.5 b.i.d. had urged to taper over time especially with gabapentin risks benefits alternatives have been reviewed Medications: Refilled gabapentin 300 mg PO BID 180 caps 1RF venlafaxine ER 150 mg PO DAILY 90 caps 1RF 90 days clonazepam 0.5 mg PO BID 180 tabs 1RF 3 months Counseling and coordination of Care Pt. Self Management counseling: General coping skills Medication management counseling: Effectiveness, Side effects and Dosing range Diagnosis and Prognosis Counseling: Prognosis over time, Impact of diagnosis on life functions and Adequacy of current interventions Details: I spent [39] minutes reviewing the record, seeing the patient and documenting in the medical record. Counseling provided to the patient/caregiver as outlined below. Addressed patient/caregiver concerns regarding current medication regime including effective adherence. Addressed patient/caregiver concerns regarding diagnosis and prognosis including accuracy of diagnosis, prognosis over time, impact of diagnosis. Addressed patient/caregiver concerns regarding impact of recent stressors. 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
--- OUTSIDE RECORDS SUMMARY | 2024-10-01 15:32 | XMS_ITS | Clinical Summary ---
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 Name Role Phone Terrence Jones MD Primary Care Provider [phone] Allergies Active Allergy Reactions Criticality Noted Date Comments Azithromycin Diarrhea 04/02/2024 Doxycycline 04/02/2024 Penicillins 04/02/2024 Sulfamethoxazole 04/02/2024 Medications venlafaxine XR (EFFEXOR-XR) 75 MG 24 hr capsule Take 75 mg by mouth 2 Active ipratropium (ATROVENT) 0.03 % nasal spray See Instructions, INSTILL 2 SPRAYS INTRANASALLY 2 TIMES A DAY, # 30 Unknown, 0 Refills, [facility], 30, INSTILL 2 SPRAYS INTRANASALLY 2 TIMES A DAY, 170, cm, 12/03/20 15:43:00 EDT, Height, 55, kg, 07/22/19 9:41:00 EDT, Dry Weight 2 Active fluconazole (Diflucan) 150 MG tablet Take 150 mg by mouth 2 Active clonazePAM (KlonoPIN) 2 MG tablet Take by mouth 1 Active cetirizine (ZyrTEC ALLERGY) 10 MG tablet Take 1 tablet by mouth 2 Active Melatonin 5 MG tablet Take 5 mg by mouth 1 Active latanoprost (XALATAN) 0.005 % ophthalmic solution Administer 1 drop into affected eye(s) 1 Active atorvastatin (LIPITOR) 20 MG tablet Take 20 mg by mouth 1 (one) time each day Active gabapentin (NEURONTIN) 300 MG capsule Take 300 mg by mouth in the morning and 300 mg in the evening. Active Active Problems Problem Noted Date Diagnosed Date Renal mass 04/02/2024 Psoriasis 04/02/2024 Hyperlipidemia 04/02/2024 Glaucoma 04/02/2024 Anxiety 04/02/2024 Immunizations Immunization Administration Dates Next Due Influenza, Unspecified 11/19/2019,12/04/2015 Pfizer SARS-COV-2 11/04/2020,10/14/2020 Family History Medical History Relation Comments Diabetes Father Stroke Father Heart disease Maternal Grandfather Cancer Mother Relation Status Comments Father Maternal Grandfather Mother Social History Tobacco Use Types Packs/Day Years Used Date Smoking Tobacco: Former Cigarettes Q uit: 12/03/2020 Smokeless Tobacco: Never Tobacco Cessation:Counseling Given: Not Answered Comments Unknown Sex and Gender Information Value Date Recorded Sex Assigned at Not on file Legal Sex Female 11:37 AM EDT Gender Identity Not on file Sexual Orientation Not on file Plan of Treatment Health Maintenance Due Date Last Done Comments Breast Cancer Screening 1950 Pneumococcal Vaccine: 50+ Years (1 of 2 - PCV) 12/15/1967 Colorectal Cancer Screening: Annual FOBT 1997 Colorectal Cancer Screening: Colonoscopy 1997 Colorectal Cancer Screening: Sigmoidoscopy 1997 Influenza Vaccine (#1) 2024 , 12/04/2015 Hepatitis B Vaccine Aged Out No longe r eligible based on patient's age to complete this topic Insurance [facility] Care Teams Geothermal Field Technician Relationship Specialty Start Date End Date Terrence Jones MD [address] [place], [place] PCP - General Internal Medicine 10/18/23
== END 2024-10-01 16:33 | disposition home or self-care (01) ==
LOC: HO.HOP 14:39
PROVIDERS: PCP Nurse Practitioner Family; Visit Provider Psychiatry & Neurology Psychiatry
DX: F34.1 Dysthymic disorder (principal); F41.1 Generalized anxiety disorder
CPT/HCPCS: 90833; 99213

== ENCOUNTER → 2024-10-01 14:39 | Outpatient (BNVA) | payer MEDICARE, SELFPAY | PROVIDERS: PCP Nurse Practitioner Family; Visit Provider Psychiatry & Neurology Psychiatry | DX: F34.1 Dysthymic disorder (principal); F41.1 Generalized anxiety disorder; Z79.899 Other long term (current) drug therapy | CPT/HCPCS: 99212 ==

== ENCOUNTER 2025-02-03 14:30 | Outpatient (AMB) | payer MEDICARE, SELFPAY ==
--- NOTE | 2025-02-03 16:40 | MHC.OFFVISPS ---
Intake Intake Visit Reasons: depression Allergies Penicillins (PENICILLINS) Allergy (Intermediate, Verified 08/02/22 15:31) HIVES Sulfa (Sulfonamide Antibiotics) (SULFA (SULFONAMIDE ANTIBIOTICS)) Allergy (Intermediate, Verified 08/02/22 15:31) HIVES Medication List - Last Reconciled 02/03/25 by Curtis Whitley MD atorvastatin 20 mg PO DAILY 90 days clonazepam 0.5 mg PO BID 3 months gabapentin 300 mg PO BID latanoprost 0.005% 1 drp ophthalmic (eye) DAILY venlafaxine ER 150 mg PO DAILY 90 days HPI- Psychiatric Chief Complaint: depression HPI Narrative: 02/03/25, 2:59 PM (100m) PATIENT SUMMARY The patient attended the session primarily to discuss ongoing anxiety and the use of supplements and medications to manage symptoms. HPI The patient described experiencing significant anxiety, stating that it was through the roof. The patient expressed a willingness to try various supplements, mentioning a history of taking vitamins in their twenties and thirties. The patient also mentioned experiencing constant worry and an inability to shut off their mind, describing it as catastrophizing. The patient reported trying CBD in the past without significant recollection of its effects and mentioned a sensitivity to smoking due to throat irritation from a previous virus. The patient currently takes gabapentin, venlafaxine, clonazepam, and atorvastatin, and has been prescribed eye drops. The patient discussed a recent recommendation for a sonogram of the kidneys and expressed concerns about psoriasis affecting their face and body, which has been classified as covering 40% of their body. PAIN The patient did not report any pain or provide a pain level out of 10 during the session. BACKGROUND The patient did not report any new allergies or medications. They are currently taking gabapentin, venlafaxine, clonazepam as needed, atorvastatin, and eye drops. The patient mentioned experiencing throat, nose, and ear irritation from a past virus. They are considering laser eye surgery for cataracts and glaucoma but have postponed it. The patient also discussed concerns about psoriasis affecting their face and body. Past Psychiatric History: long hx chronic depression anxiety sleep disturbance effexor 75 mg klonapin 1 bid takes melatonin Mental Status Exam Mental Status Exam Narrative: ental Status Exam Narrative: Appearance: Casually dressed has multiple tattoos Behavior: Cooperative appropriate mildly expansive psychomotor: Within normal limits Speech: Normal volume and prosody Thought proccess logical and goal-directed Thought content: Future oriented but complains of limited enjoyment worries regarding the aging process and worried about her who has early cancer. She general feels has not been very caring or supportive an emotional way Mood: anxious and depressed Affect: Appropriate to mood full affect SI:denies HI:denies VH/AH:none Delusions: None Insight/judgment: Good insight and judgment Memory/cog: Intact Assessment and Plan Assessment & Plan (1) Generalized anxiety disorder: Status: Acute Code(s): F41.1 - Generalized anxiety disorder (2) Dysthymia (or depressive neurosis): Status: Acute Code(s): F34.1 - Dysthymic disorder Plan The patient has Generalized Anxiety Disorder, given the patient's report of excessive worry and catastrophizing. Psoriasis is evident, affecting a significant portion of the patient's body, potentially contributing to their anxiety. The patient's anxiety might be exacerbated by underlying psoriasis patient has failed multiple trials of multiple antidepressants and augmentation strategies. She has done best generally on Effexor we have tried multiple other augmentation strategies. Have encouraged exercise meditation psychotherapy. The discussion of supplements such as NAC and fish oil suggests consideration of alternative therapies to manage anxiety. PLAN I reviewed the safety of supplements with the patient, advising against kava due to potential liver issues. I recommended exploring [facility] for supplement quality information. The patient will continue gabapentin 300 mg twice daily, venlafaxine, and clonazepam as needed. I advised the patient to monitor for any significant changes if starting new treatments and to report any side effects. The patient agreed to a sonogram of the kidneys scheduled for next month. The patient will be re-evaluated in two to three months to assess the effectiveness of current treatments and any new interventions. Has failed past trial of TMS Counseling and coordination of Care Diagnosis and Prognosis Counseling: Problematic behaviors secondary to diagnosis and Adequacy of current interventions Details: I spent [37] minutes reviewing the record, seeing the patient and documenting in the medical record. Counseling provided to the patient/caregiver as outlined below. Addressed patient/caregiver concerns regarding current medication regime including effective adherence. Addressed patient/caregiver concerns regarding diagnosis and prognosis including accuracy of diagnosis, prognosis over time, impact of diagnosis. Addressed patient/caregiver concerns regarding impact of recent stressors. 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
== END 2025-02-03 15:25 | disposition home or self-care (01) ==
LOC: HO.HOP 14:30
PROVIDERS: PCP Nurse Practitioner Family; Visit Provider Psychiatry & Neurology Psychiatry
DX: F41.1 Generalized anxiety disorder (principal); F34.1 Dysthymic disorder
CPT/HCPCS: 90833; 99213

== ENCOUNTER → 2025-02-03 14:30 | Outpatient (BNVA) | payer MEDICARE, SELFPAY | PROVIDERS: PCP Nurse Practitioner Family; Visit Provider Psychiatry & Neurology Psychiatry | DX: F41.1 Generalized anxiety disorder (principal); F34.1 Dysthymic disorder | CPT/HCPCS: 99212 ==